=== PATIENT | male | born 2000 | race Caucasian/White ===

== ENCOUNTER 2020-05-08 23:47 | Emergency (ER) | payer SELFPAY ==
[~2020-05-08] VITALS: Ht 160 cm; Wt 59.1 kg
[2020-05-08 23:54] VITALS: TEMP 98.1
[2020-05-09 01:31] VITALS: BP 131/83; PULSE 85
== END 2020-05-09 01:31 | disposition home or self-care (01) ==
LOC: COL.ER 23:47 → EDBD 23:49 → COL.ER 05-09 01:31
DX: S05.11XA Contusion of eyeball and orbital tissues, right eye, initial encounter (principal); Y04.8XXA Assault by other bodily force, initial encounter